=== PATIENT | female | born 1960 | race Caucasian/White ===

== ENCOUNTER → 2023-11-26 13:53 | Outpatient (REF) | payer MEDICARE, MEDICAID, SELFPAY | LOC: HWRAD 13:53 | PROVIDERS: ATTENDING PHYSICIAN Internal Medicine | DX: Z12.73 Encounter for screening for malignant neoplasm of ovary (principal) | CPT/HCPCS: 76856 ==

== ENCOUNTER → 2023-12-20 13:55 | Outpatient (REF) | payer MEDICARE, MEDICAID, SELFPAY | LOC: HWWDC 13:55 | PROVIDERS: ATTENDING PHYSICIAN Internal Medicine | DX: Z12.31 Encounter for screening mammogram for malignant neoplasm of breast (principal) | CPT/HCPCS: 77063; 77067 ==

== ENCOUNTER 2023-12-31 10:56 | Outpatient (RCR) | payer MEDICARE, MEDICAID, SELFPAY | END 2023-12-31 23:59 | disposition home or self-care (01) | LOC: RPT 10:56 | PROVIDERS: ATTENDING PHYSICIAN Internal Medicine | DX: M25.562 Pain in left knee (principal); M25.561 Pain in right knee; F40.298 Other specified phobia; Z73.6 Limitation of activities due to disability; M62.81 Muscle weakness (generalized); W19.XXXD Unspecified fall, subsequent encounter | CPT/HCPCS: 97110; 97112; 97163; 97530 ==

== ENCOUNTER 2024-01-30 16:31 | Outpatient (RCR) | payer MEDICARE, MEDICAID, SELFPAY | END 2024-01-30 23:59 | disposition home or self-care (01) | LOC: RPT 16:31 | PROVIDERS: ATTENDING PHYSICIAN Internal Medicine | DX: M25.562 Pain in left knee (principal); M25.561 Pain in right knee; F40.298 Other specified phobia; Z73.6 Limitation of activities due to disability; M62.81 Muscle weakness (generalized); W19.XXXD Unspecified fall, subsequent encounter | CPT/HCPCS: 97110; 97112; 97530 ==

== ENCOUNTER 2024-02-28 10:44 | Outpatient (RCR) | payer MEDICARE, MEDICAID, SELFPAY | END 2024-02-28 23:59 | disposition home or self-care (01) | LOC: RPT 10:44 | PROVIDERS: ATTENDING PHYSICIAN Internal Medicine | DX: M25.562 Pain in left knee (principal); M25.561 Pain in right knee; F40.298 Other specified phobia; Z73.6 Limitation of activities due to disability; M62.81 Muscle weakness (generalized); W19.XXXD Unspecified fall, subsequent encounter | CPT/HCPCS: 97110; 97112; 97530 ==

== ENCOUNTER 2024-03-27 10:11 | Outpatient (RCR) | payer MEDICARE, MEDICAID, SELFPAY | END 2024-03-27 23:59 | disposition home or self-care (01) | LOC: RPT 10:11 | PROVIDERS: ATTENDING PHYSICIAN Internal Medicine | DX: M25.562 Pain in left knee (principal); M25.561 Pain in right knee; F40.298 Other specified phobia; Z73.6 Limitation of activities due to disability; M62.81 Muscle weakness (generalized); R26.89 Other abnormalities of gait and mobility; W19.XXXD Unspecified fall, subsequent encounter | CPT/HCPCS: 97112; 97530 ==

== ENCOUNTER 2024-04-21 13:57 | Outpatient (RCR) | payer MEDICARE, MEDICAID, SELFPAY | END 2024-04-21 23:59 | disposition home or self-care (01) | LOC: RPT 13:57 | PROVIDERS: ATTENDING PHYSICIAN Internal Medicine | DX: M25.562 Pain in left knee (principal); M25.561 Pain in right knee; F40.298 Other specified phobia; Z73.6 Limitation of activities due to disability; M62.81 Muscle weakness (generalized); W19.XXXD Unspecified fall, subsequent encounter | CPT/HCPCS: 97110; 97112; 97530 ==

== ENCOUNTER → 2024-05-08 11:14 | Outpatient (REF) | payer MEDICARE, MEDICAID, SELFPAY | LOC: RCS 11:14 | PROVIDERS: ATTENDING PHYSICIAN Internal Medicine Cardiovascular Disease; FAMILY PHYSICIAN Internal Medicine | DX: I34.0 Nonrheumatic mitral (valve) insufficiency (principal) | CPT/HCPCS: 93306 ==

== ENCOUNTER 2024-05-08 15:16 | Outpatient (RCR) | payer MEDICARE, MEDICAID, SELFPAY | END 2024-05-11 07:16 | disposition home or self-care (01) | LOC: RPT 15:16 | PROVIDERS: ATTENDING PHYSICIAN Internal Medicine | DX: M25.562 Pain in left knee (principal); M25.561 Pain in right knee; F40.298 Other specified phobia; Z73.6 Limitation of activities due to disability; W19.XXXD Unspecified fall, subsequent encounter; M62.81 Muscle weakness (generalized); R42 Dizziness and giddiness; M54.2 Cervicalgia; M25.511 Pain in right shoulder; G89.29 Other chronic pain | CPT/HCPCS: 97110; 97530 ==

== ENCOUNTER → 2024-05-29 09:57 | Outpatient (REF) | payer MEDICARE, MEDICAID, SELFPAY | LOC: RAD 09:57 | PROVIDERS: ATTENDING PHYSICIAN Internal Medicine | DX: M54.2 Cervicalgia (principal) | CPT/HCPCS: 72040 ==

== ENCOUNTER → 2024-07-28 09:20 | Outpatient (REF) | payer MEDICARE, MEDICAID, SELFPAY | LOC: MRI 09:20 | PROVIDERS: ATTENDING PHYSICIAN Internal Medicine | DX: M54.2 Cervicalgia (principal) | CPT/HCPCS: 72141 ==

== ENCOUNTER 2024-10-02 12:55 | Outpatient (RCR) | payer MEDICARE, MEDICAID, SELFPAY | END 2024-10-02 23:59 | disposition home or self-care (01) | LOC: RPT 12:55 | PROVIDERS: ATTENDING PHYSICIAN Physician Assistant Medical; FAMILY PHYSICIAN Family Medicine | DX: M40.202 Unspecified kyphosis, cervical region (principal); Z73.6 Limitation of activities due to disability; M62.81 Muscle weakness (generalized); M25.511 Pain in right shoulder | CPT/HCPCS: 97010; 97110; 97163; 97530 ==

== ENCOUNTER → 2024-10-09 09:46 | Outpatient (REF) | payer MEDICARE, MEDICAID, SELFPAY | LOC: EMG 09:46 | PROVIDERS: ATTENDING PHYSICIAN Orthopaedic Surgery Hand Surgery; FAMILY PHYSICIAN Family Medicine | DX: G56.22 Lesion of ulnar nerve, left upper limb (principal); R20.0 Anesthesia of skin | CPT/HCPCS: 95886; 95911 ==

== ENCOUNTER 2024-10-30 12:48 | Outpatient (RCR) | payer MEDICARE, MEDICAID, SELFPAY | END 2024-10-30 23:59 | disposition home or self-care (01) | LOC: RPT 12:48 | PROVIDERS: ATTENDING PHYSICIAN Physician Assistant Medical; FAMILY PHYSICIAN Family Medicine | DX: M40.202 Unspecified kyphosis, cervical region (principal); Z73.6 Limitation of activities due to disability; M62.81 Muscle weakness (generalized); R20.2 Paresthesia of skin; M25.511 Pain in right shoulder | CPT/HCPCS: 97010; 97110; 97140; 97530 ==

== ENCOUNTER 2024-11-14 10:42 | Emergency (ER) | payer MEDICARE, MEDICAID, SELFPAY ==
[2024-11-14] VITALS (7 sets, daily range): BP systolic 101–142; BP diastolic 8–91; PULSE 72–76; BMI 25.2
--- NOTE | 2024-11-14 11:12 | EDRN ---
Dr. Carrillo currently at the pts bedside
[2024-11-14 11:15] LABS: % Basophils 1.4 % (0-2); % Eosinophils 0.5 % (0-6); % Immature Granulocytes 0.3 % (0-0.5); % Lymphocytes 14.3 % (20.5-51.1); % Monocytes 10.2 % (1.7-9.3); % Neutrophils 73.3 % (42.2-75.2); Absolute Basophils 0.1 10^3/uL (0-0.2); Absolute Lymphocytes 0.9 10^3/uL (1.2-3.4); Absolute Monocytes 0.7 10^3/uL (0.1-0.6); Absolute Neutrophils 4.8 10^3/uL (1.4-6.5); Hematocrit 36.8 % (37.0-47.0); Hemoglobin 12.7 g/dL (12.0-16.0); Mean Corp Hgb Conc. 34.5 g/dL (33.0-37.0); Mean Corpuscular Hgb 32.1 pg (27.0-31.0); Mean Corpuscular Volume 92.9 fL (81.0-99.0); Mean Platelet Volume 9.8 fL (7.4-10.4); Nucleated Red Blood Cells % 0 %; Platelet Count 248 10^3/uL (130-400); Red Blood Cell Count 3.96 10^6/uL (4.20-5.40); Red Cell Dist. Width 14.3 % (11.5-14.5); White Blood Cell Count 6.6 10^3/uL (4.8-10.8)
[2024-11-14 11:21] LABS: ALT (SGPT) 26 U/L (0-35); AST (SGOT) 35 U/L (14-36); Albumin 3.5 g/dl (3.5-5.0); Alkaline Phosphatase 81 U/L (38-126); Blood Urea Nitrogen 16 mg/dl (7-17); Carbon Dioxide 24 mmol/L (22-30); Chloride 100 mmol/L (98-107); Estimated Creatinine Clearance 49 ml/min; Glucose 110 mg/dl (70-99); Potassium 4.5 mmol/L (3.5-5.1); Sodium 131 mmol/L (135-145); Total Bilirubin 0.7 mg/dl (0.2-1.3); Total Protein 6.5 g/dl (6.3-8.2); eGFR > 60.00
[2024-11-14] MEDS: NSS 500 IV (11:49)
[2024-11-14 12:29] LABS: Troponin I < 0.012 ng/ml
[2024-11-14 13:53] LABS: Urine Albumin Negative (Neg - Trace); Urine Bilirubin Negative (Negative); Urine Character Clear (Clear); Urine Color Yellow; Urine Glucose Negative (Negative); Urine Ketone Negative (Negative); Urine Leukocyte Negative (Negative); Urine Nitrite Negative (Negative); Urine Occult Blood Negative (Negative); Urine Specific Gravity 1.005 (<1.030); Urine Urobilinogen Negative (Neg - 1+)
--- NOTE | 2024-11-14 14:25 | ED.GENMED ---
History of Present Illness
General
Chief Complaint: Fainting/Passed Out
Source: patient, family and disabilities caregiver
Time Seen by Provider: 11/14/24 10:59
History of Present Illness
History of Present Illness:
This is a 64-year-old female with a history of Down syndrome who presents with family (sister) and caregiver. Her caregiver who lives with her full-time states that today she came down and sat at the table. She did not quite seem herself. She
then sort of tilted her head back and lost consciousness. She states her hands were a little bit spastic but did not note a true seizure. She states she called 9 1 and she was advised to lower the patient to the floor. After the patient was
lowered to the floor she became awake and alert. The caregiver does state that EMS found her to be hypotensive. Of note, just prior to this event she was in the bathroom. Notably her caregiver reports that she spends 20 to 30 minutes in the
bathroom mostly because everything takes a long time and I do not suspect she has been constipated. They states she was quite pale when this occurred and then after she was laid on the floor her color returned. The patient did not complain of
anything. She specifically did not complain of any chest pain or abdominal pain. Family and caregiver state she has not complained of any shortness of breath. No reported fevers or recent illnesses. No reported diarrhea.
Past History
Past History
ED Past Medical History: Valvular disease (Mitral valve regurgitation), Other (The patient is a poor historian of her right hand swelling or injury ) and Other (Down Syndrome )
Social History
Tobacco: Non-smoker
Living: with roommate
Phy Exam
Physical Exam
Physical Exam:
CONSTITUTIONAL Patient alert and oriented to person, place. Well-appearing. Vital signs reviewed. Down's features noted
HEAD atraumatic, normocephalic.
EYES eyelids normal to inspection, Extraocular muscles intact, Conjunctiva normal, Sclera normal.
NECK normal range of motion, Trachea midline, no jugular venous distention.
RESPIRATORY CHEST No respiratory distress noted, Chest expansion equal, Bilateral breath sounds clear.
CARDIOVASCULAR regular rate and rhythm, Heart sounds normal.
ABDOMEN abdomen nontender, Bowel sounds normal. No distention.
BACK normal inspection, no obvious deformities
UPPER EXTREMITY range of motion normal, Motor strength normal, no cyanosis, no edema.
LOWER EXTREMITY range of motion normal, Motor strength normal, no cyanosis, no edema.
NEURO Speech normal, No focal motor deficits, Cranial Nerves intact to screening exam.
SKIN skin warm, dry, and normal in color.
Course
Orders/Labs/Results
Orders:
Orders
11/14/24 10:48
EKG [Electrocardiogram (*1)] Urgent
Reason for Study: Vertigo / Dizzy
EKG- Treatment ONCE
11/14/24 10:49
Complete Blood Count/With Diff Urgent
Comprehensive Metabolic Panel Urgent
11/14/24 11:25
0.9% Sodium Chloride 500 ml [Nss] 500 ml IV BOLUS
11/14/24 11:48
Troponin I Urgent
Urinalysis Reflex To Culture Urgent
Date Specimen was Collected: 11/14/24
Time Specimen was Collected: 11:26
11/14/24 13:58
Add On- LAB Urgent
Tests Added?: TSh, Mg
Abnormal Lab Results
11/14/24
10:49
RBC 3.96 L 10^6/uL
(4.20-5.40)
Hct 36.8 L %
(37.0-47.0)
MCH 32.1 H pg
(27.0-31.0)
Absolute Lymphs (auto) 0.9 L 10^3/uL
(1.2-3.4)
Absolute Monos (auto) 0.7 H 10^3/uL
(0.1-0.6)
Lymphocytes % 14.3 L %
(20.5-51.1)
Monocytes % 10.2 H %
(1.7-9.3)
Sodium 131 L mmol/L
(135-145)
Glucose 110 H mg/dl
(70-99)
11/14/24 10:49
11/14/24 10:49
Vital Signs
Initial and Last Documented VS:
Initial Vital Signs
Pulse Resp BP Pulse Ox
61 16 119/81 100
11/14/24 10:47 11/14/24 10:47 11/14/24 10:47 11/14/24 10:47
Last Documented Vital Signs
Temp Pulse Resp BP Pulse Ox
98.5 F 60 14 118/71 98
11/14/24 10:55 11/14/24 12:00 11/14/24 12:00 11/14/24 12:00 11/14/24 12:00
MDM/Problems Addressed
MDM/Problems Addressed:
Syncope, possible vasovagal syncope
*Pulse Oximetry
Patient hypoxic: no
*EKG
Interpreted by ED Provider?: Yes
Interpretation: abnormal
Rate: bradycardiac
Rhythm: sinus
[place]: normal axis
Interval: normal interval
QRS Pattern: normal QRS
Ischemia: no ischemia
*Gas Cutter Interpretation
Rate: normal
Interpretation: normal
Rhythm: sinus
*Critical Care Note
Total Time (30-74mins, 75-104mins- exclusive of procedures): Not Applicable
Data Reviewed
Review of Other/Old Records Reveals: Other (Echocardiogram reviewed showing mitral valve regurgitation.)
Source: patient, family and disabilities caregiver
Further Testing Considered But Not Given:
Considered head CT but do not suspect seizure
Patient Management
Escalation/DeEscalation of care consider admission/obs:
64-year-old female with history of Down's who presents after syncopal event. It was noted that she was on the toilet prior to this event question vasovagal event given bradycardia and hypotension. Symptoms resolved and has remained stable here in
the emergency department. Orthostatics negative. Case discussed with Dr. Nguyen. She knows the patient well. She will arrange outpatient Holter and echocardiogram on Saturday and agrees that outpatient management is reasonable. The patient
has 24-hour caregiver. They will monitor closely and monitor her well in the toilet. I think this is reasonable given her stability here in the department.
ED Attending Note
-
Portions of this chart may have been created with voice recognition software.� Occasional wrong word or��sound alike� substitutions may have occurred due to the inherent limitations of voice recognition software.
Discharge Plan
Departure
Patient Disposition: Home (Routine Discharge)
Date of Disposition: 11/14/24
Time of Disposition: 14:35
Patient with high blood pressure during this ER visit?: No
Discharge Problem:
Syncope
Instructions: Syncope (Fainting) (DC)
Prescriptions:
No Action
famotidine 20 mg Tablet
20 mg PO HS
Debrox 6.5 % Drops
5 drp OTIC (EAR) DAILY
docusate sodium [Colace] 100 mg Capsule
100 mg PO DAILY PRN (Reason: constipation)
fiber Capsule
1 cap PO BID
Saline Nose 0.65 % Aerosol,[place]
2 spray INTRANASAL HS
multivitamin Tablet,Chewable
1 tab PO DAILY
acetaminophen [Tylenol] 325 mg Capsule
650 mg PO Q4H PRN (Reason: pain)
diclofenac sodium [Voltaren] 1 % Gel
2 g TOPICAL DAILY
cholecalciferol (vitamin D3) [Vitamin D3] 50 mcg (2,000 unit) Capsule
50 mcg PO DAILY
Zyrtec 10 mg Capsule
10 mg PO DAILY
Prolia 60 mg/mL Syringe
60 mg SC [id number]
levothyroxine 112 mcg/mL Solution
112 mcg PO DAILY
[place] 3
2,400 mg PO HS
artifi.tears(hypromellose)(PF)
2 ophthalmic insert BOTH EYES DAILY PRN (Reason: dry eyes)
calcium
1,500 mg PO BID
vitamin [id number] B1
1,000 mcg PO HS
Mucinex
1 tab PO PRN PRN (Reason: congestion)
lidocaine [Salonpas (lidocaine)] 4 % Adhesive Patch,Medicated
1 patch TOPICAL BID PRN (Reason: pain)
Referrals:
Teresa Shukla [employer] OPERATOR HELPER [Family Provider] -
Activity Restrictions/Additional Instructions:
Please see Dr. Nguyen in follow-up as discussed to arrange Holter monitor and echocardiogram. Return for any changes in mentation any complaints of chest pain, fevers, vomiting, abdominal pain or any other concerns.
Interventions
Interventions:
*Risk Screen - Suicide Last Done: 11/14/24 10:55
*General Assessment Last Done: 11/14/24 10:55
*Neglect/Abuse Screening Last Done: 11/14/24 10:55
*ED- Fall Risk Assessment Last Done: 11/14/24 10:55
*ED COVID-19 Vaccine History Last Done: 11/14/24 10:55
ED- Cardiac Assessment Last Done: 11/14/24 10:55
ED- Neurological Assessment Last Done: 11/14/24 10:55
Discharge Date and Time
Print Language: KYRGYZ
[2024-11-14 15:36] LABS: Magnesium 1.8 mg/dl (1.6-2.3)
[2024-11-14 16:20] LABS: TSH 0.55 uIU/ml (0.47-4.68)
== END 2024-11-14 15:19 | disposition home or self-care (01) ==
LOC: EMR 10:42
PROVIDERS: EMERGENCY PHYSICIAN Emergency Medicine; FAMILY PHYSICIAN Internal Medicine
DX: R55 Syncope and collapse (principal); Q90.9 Down syndrome, unspecified; I38 Endocarditis, valve unspecified; I34.0 Nonrheumatic mitral (valve) insufficiency
CPT/HCPCS: 99283; 96360; 80053; 81003; 83735; 84443; 84484; 85025; 93005

== ENCOUNTER 2024-11-15 10:35 | Emergency (ER) | payer MEDICARE, MEDICAID, SELFPAY ==
[2024-11-15 10:41] VITALS: BP 136/83
--- NOTE | 2024-11-15 13:27 | ED.GENMED ---
History of Present Illness
General
Chief Complaint: Musculo-Skeletal Complaint
Time Seen by Provider: 11/15/24 11:14
History of Present Illness
History of Present Illness:
64-year-old female presents to the emergency department for evaluation of left knee pain and swelling. She was seen in the emergency department yesterday after a syncopal event and was treated with fluids and discharged in stable condition.
Fixed Route Bus Operator and sister notes that she had difficulty ambulating shortly after discharge and was unable to bear weight on the left knee today whatsoever. Has known history of arthritis and receives frequent knee injections with both synthetic synovial
fluid and corticosteroids. Patient endorses no pain while sitting in the exam bed
Past History
Past History
ED Past Medical History: Valvular disease (Mitral valve regurgitation), Other (The patient is a poor historian of her right hand swelling or injury ) and Other (Down Syndrome )
Social History
Tobacco: Non-smoker
Living: with roommate
Review of Systems
Review of Systems
Allergies reviewed?: Yes
All Other Systems: ROS reviewed and negative except as documented in HPI and ROS
Phy Exam
Physical Exam
Physical Exam:
GEN: Well appearing, NAD, WDWN
HEENT: Oral mucosa moist, no scleral icterus
Cardiac: Regular rate
Lung: No respiratory distress, no tachypnea
MSK: Large left knee effusion noted, range of motion is normal and unrestricted
Skin: Good color, no pallor or jaundice, no rashes
Neuro: AO x3, moves all extremities freely
Psych: Calm, cooperative
Course
Orders/Labs/Results
Orders:
Orders
11/15/24 10:38
CR Knee - Left 4 Or More View* Urgent
Comment:
Reason For Exam: pain
11/15/24 12:40
Body Fluid Cell Count Urgent
What is the Body Fluid: joint
Date Specimen was Collected: 11/15/24
Time Specimen was Collected: 12:12
Comment: with DIFF
Body Fluid Crystals Urgent
What is the Body Fluid: joint
Date Specimen was Collected: 11/15/24
Time Specimen was Collected: 12:12
Fluid Culture with Gram Stain Urgent
[place] Source: Joint Fluid
Specimen Description:
Date Specimen was Collected: 11/15/24
Time Specimen was Collected: 12:12
Comment: L knee
Vital Signs
Initial and Last Documented VS:
Initial Vital Signs
Temp Pulse Resp BP Pulse Ox
98.5 F 69 17 136/83 97
11/15/24 10:41 11/15/24 10:41 11/15/24 10:41 11/15/24 10:41 11/15/24 10:41
Last Documented Vital Signs
Temp Pulse Resp BP Pulse Ox
98.5 F 69 17 136/83 97
11/15/24 10:41 11/15/24 10:41 11/15/24 10:41 11/15/24 10:41 11/15/24 10:41
Procedures
Incision/Drainage/Joint Aspiration
Left Knee:
Anethesia: 1% Lidocaine
Preparation: cleaned with Betadine
Type of procedure: aspiration
Nature of site: other (Knee Effusion)
How much fluid was obtained?: number in mls (120mL)
Fluid description: straw colored
Treatment: bandaid applied
MDM/Problems Addressed
MDM/Problems Addressed:
Knee aspirated for greater than 100 cc of straw-colored fluid, cell counts not consistent with septic joint. Patient with dramatic improvement in pain after aspiration. Discharged in stable condition will start NSAIDs
*Critical Care Note
Total Time (30-74mins, 75-104mins- exclusive of procedures): Not Applicable
ED Attending Note
-
Portions of this chart may have been created with voice recognition software.� Occasional wrong word or��sound alike� substitutions may have occurred due to the inherent limitations of voice recognition software.
Discharge Plan
Departure
Patient Disposition: Home (Routine Discharge)
Date of Disposition: 11/15/24
Time of Disposition: 13:27
Patient with high blood pressure during this ER visit?: No
Discharge Problem:
Effusion of left knee
Instructions: Swollen Joints (DC)
Prescriptions:
New
celecoxib [Celebrex] 200 mg capsule
200 mg PO BID Qty: 14 0RF
No Action
famotidine 20 mg Tablet
20 mg PO HS
Debrox 6.5 % Drops
5 drp OTIC (EAR) DAILY
docusate sodium [Colace] 100 mg Capsule
100 mg PO DAILY PRN (Reason: constipation)
fiber Capsule
1 cap PO BID
Saline Nose 0.65 % Aerosol,[place]
2 spray INTRANASAL HS
multivitamin Tablet,Chewable
1 tab PO DAILY
acetaminophen [Tylenol] 325 mg Capsule
650 mg PO Q4H PRN (Reason: pain)
diclofenac sodium [Voltaren] 1 % Gel
2 g TOPICAL DAILY
cholecalciferol (vitamin D3) [Vitamin D3] 50 mcg (2,000 unit) Capsule
50 mcg PO DAILY
Zyrtec 10 mg Capsule
10 mg PO DAILY
Prolia 60 mg/mL Syringe
60 mg SC [id number]
levothyroxine 112 mcg/mL Solution
112 mcg PO DAILY
[place] 3
2,400 mg PO HS
artifi.tears(hypromellose)(PF)
2 ophthalmic insert BOTH EYES DAILY PRN (Reason: dry eyes)
calcium
1,500 mg PO BID
vitamin Y72-whxlptc B1
1,000 mcg PO HS
Mucinex
1 tab PO PRN PRN (Reason: congestion)
lidocaine [Salonpas (lidocaine)] 4 % Adhesive Patch,Medicated
1 patch TOPICAL BID PRN (Reason: pain)
Referrals:
Teresa Shukla NP [Family Provider] -
Activity Restrictions/Additional Instructions:
Follow up with your Orthopedist
Interventions
Interventions:
*Risk Screen - Suicide Last Done: 11/15/24 10:42
*General Assessment Last Done: 11/15/24 10:42
*Neglect/Abuse Screening Last Done: 11/15/24 10:42
*ED- Fall Risk Assessment Last Done: 11/15/24 13:30
*ED COVID-19 Vaccine History Last Done: 11/15/24 10:42
*Nursing Disposition Last Done: 11/15/24 13:30
ED-Musculoskeletal Assessment Last Done: 11/15/24 12:00
Discharge Date and Time
Discharge Date/Time: 11/15/24 13:30
Print Language: MALTESE
[2024-11-15 13:34] LABS: Body Fluid Mononuclear 9.8 %; Body Fluid Polymorphonuclear 90.2 %; Body Fluid WBC 38025 /CUMM
[2024-11-15 13:45] LABS: Body Fluid Second Tech HB
== END 2024-11-15 13:30 | disposition home or self-care (01) ==
LOC: EMR 10:35
PROVIDERS: Physician Assistant; EMERGENCY PHYSICIAN Emergency Medicine; FAMILY PHYSICIAN Internal Medicine
DX: M25.462 Effusion, left knee (principal); R26.2 Difficulty in walking, not elsewhere classified; M25.562 Pain in left knee; I34.0 Nonrheumatic mitral (valve) insufficiency; Q90.9 Down syndrome, unspecified
CPT/HCPCS: 20610; 99283; 73564; 87015; 87070; 87205; 89051; 89060

== ENCOUNTER → 2024-11-17 10:12 | Outpatient (REF) | payer MEDICARE, MEDICAID, SELFPAY | LOC: HWRAD 10:12 | PROVIDERS: ATTENDING PHYSICIAN Internal Medicine | DX: Z12.73 Encounter for screening for malignant neoplasm of ovary (principal) | CPT/HCPCS: 76856 ==

== ENCOUNTER → 2024-11-18 10:09 | Outpatient (REF) | payer MEDICARE, MEDICAID, SELFPAY | LOC: HWRCS 10:09 | PROVIDERS: ATTENDING PHYSICIAN Internal Medicine Cardiovascular Disease; FAMILY PHYSICIAN Internal Medicine | DX: R55 Syncope and collapse (principal); I34.0 Nonrheumatic mitral (valve) insufficiency | CPT/HCPCS: 93306 ==

== ENCOUNTER 2024-11-20 10:58 | Outpatient (RCR) | payer MEDICARE, MEDICAID, SELFPAY | END 2024-11-20 23:59 | disposition home or self-care (01) | LOC: RPT 10:58 | PROVIDERS: ATTENDING PHYSICIAN Physician Assistant Medical; FAMILY PHYSICIAN Family Medicine | DX: M40.202 Unspecified kyphosis, cervical region (principal); Z73.6 Limitation of activities due to disability; M62.81 Muscle weakness (generalized); M25.511 Pain in right shoulder; R20.2 Paresthesia of skin | CPT/HCPCS: 97010; 97110; 97140; 97530 ==

== ENCOUNTER 2024-11-24 06:14 | Outpatient (RCR) | payer MEDICARE, MEDICAID, SELFPAY | END 2024-11-24 23:59 | disposition home or self-care (01) | LOC: ROT 06:14 | PROVIDERS: ATTENDING PHYSICIAN Orthopaedic Surgery Hand Surgery; FAMILY PHYSICIAN Family Medicine | DX: M79.641 Pain in right hand (principal); M79.642 Pain in left hand; Z73.6 Limitation of activities due to disability; R20.0 Anesthesia of skin; R20.2 Paresthesia of skin; Q90.9 Down syndrome, unspecified | CPT/HCPCS: 97166 ==

== ENCOUNTER 2024-12-18 10:03 | Outpatient (RCR) | payer MEDICARE, MEDICAID, SELFPAY | END 2024-12-18 23:59 | disposition home or self-care (01) | LOC: ROT 10:03 | PROVIDERS: ATTENDING PHYSICIAN Orthopaedic Surgery Hand Surgery; FAMILY PHYSICIAN Family Medicine | DX: M79.641 Pain in right hand (principal); M79.642 Pain in left hand; Z73.6 Limitation of activities due to disability; R20.0 Anesthesia of skin; R20.2 Paresthesia of skin; Q90.9 Down syndrome, unspecified | CPT/HCPCS: 97535 ==

== ENCOUNTER → 2024-12-22 14:59 | Outpatient (REF) | payer MEDICARE, MEDICAID, SELFPAY | LOC: WDC 14:59 | PROVIDERS: ATTENDING PHYSICIAN Internal Medicine | DX: Z12.31 Encounter for screening mammogram for malignant neoplasm of breast (principal) | CPT/HCPCS: 77063; 77067 ==

== ENCOUNTER → 2025-02-01 16:12 | Outpatient (REF) | payer MEDICARE, MEDICAID, SELFPAY | LOC: DHSLP 16:12 | PROVIDERS: ATTENDING PHYSICIAN Internal Medicine Cardiovascular Disease; FAMILY PHYSICIAN Internal Medicine | DX: G47.30 Sleep apnea, unspecified (principal); R06.83 Snoring | CPT/HCPCS: 95800 ==

== ENCOUNTER → 2025-02-09 14:11 | Outpatient (REF) | payer MEDICARE, MEDICAID, SELFPAY | LOC: RAD 14:11 | PROVIDERS: ATTENDING PHYSICIAN Physician Assistant; FAMILY PHYSICIAN Internal Medicine | DX: M25.511 Pain in right shoulder (principal); M25.522 Pain in left elbow | CPT/HCPCS: 73030; 73070 ==

== ENCOUNTER → 2025-02-19 09:25 | Outpatient (REF) | payer MEDICARE, MEDICAID, SELFPAY | LOC: PAVMRI 09:25 | PROVIDERS: ATTENDING PHYSICIAN Physician Assistant; FAMILY PHYSICIAN Internal Medicine | DX: M25.562 Pain in left knee (principal); M17.12 Unilateral primary osteoarthritis, left knee | CPT/HCPCS: 73721 ==

== ENCOUNTER 2025-03-23 16:25 | Emergency (ER) | payer MEDICARE, MEDICAID, SELFPAY ==
[2025-03-23 16:27] VITALS: BP 159/101
[2025-03-23 17:04] LABS: Hematocrit 39.5 % (37.0-47.0); Hemoglobin 13.8 g/dL (12.0-16.0); Mean Corp Hgb Conc. 34.9 g/dL (33.0-37.0); Mean Corpuscular Volume 94.3 fL (81.0-99.0); Nucleated Red Blood Cells % 0 %; Platelet Count 222 10^3/uL (130-400); Red Cell Dist. Width 14.8 % (11.5-14.5)
[2025-03-23 17:20] LABS: Urine Character Clear (Clear)
[2025-03-23 17:27] LABS: ALT (SGPT) 59 U/L (0-35); AST (SGOT) 43 U/L (14-36); Albumin 4.1 g/dl (3.5-5.0); Alkaline Phosphatase 79 U/L (38-126); Blood Urea Nitrogen 19 mg/dl (7-17); Calcium 8.7 mg/dl (8.4-10.2); Carbon Dioxide 31 mmol/L (22-30); Chloride 94 mmol/L (98-107); Glucose 96 mg/dl (70-99); Potassium 4.2 mmol/L (3.5-5.1); Sodium 128 mmol/L (135-145); Total Protein 7.3 g/dl (6.3-8.2); eGFR > 60.00
[2025-03-23 19:50] VITALS: BP 127/100
--- NOTE | 2025-03-24 16:45 | ED.GENMED ---
History of Present Illness
General
Chief Complaint: Change in Mental Status
Source: patient, family and lead care manager
Exam Limitations: none
Time Seen by Provider: 03/23/25 18:45
Nursing documentation reviewed up to this point in time: agreed with
History of Present Illness
History of Present Illness:
Patient iwth history of downs syndrome. Caregiver reports increased confusion this AM. According to family and caregiver, patient has been seeing a neurologist to r/o downs dementia. The report that they have noticed mild decline over the past
few momths but this AM confusion was worse. Symptoms stated for a few hours and then resolved. No fever/chills, recent illness. No history of head injury. Brought to ED by family and caregiver for eval.
Past History
Past History
ED Past Medical History: Valvular disease (Mitral valve regurgitation), Other (The patient is a poor historian of her right hand swelling or injury ) and Other (Down Syndrome )
Social History
Tobacco: Non-smoker
Living: with roommate
Review of Systems
Review of Systems
All Other Systems: ROS reviewed and negative except as documented in HPI and ROS
Constitutional: Reports no symptoms
EENT: Reports no symptoms
Respiratory: Reports no symptoms
Cardiac: Reports no symptoms
ABD/GI: Reports no symptoms
: Reports no symptoms
Musculoskeletal: Reports no symptoms
Skin: Reports no symptoms
Neurological: Reports other (increased confusion this am)
Psychiatric: Reports no symptoms
Phy Exam
General Physical Exam
General Presentation: well appearing and no apparent distress
General age: appears stated age
General Skin: warm and dry
General Habitus: normal
General Mental: alert
ENT Exam
ENT Exam: EOMI, neck supple, normocephalic and swallowing well
Eye Exam
Eye Exam: PERRL, EOMI, conjunctiva normal and globe normal
Cardiovascular Exam
Cardiovascular Exam: regular rate/rhythm and no edema
Pulmonary Exam
Pulmonary Exam: lungs clear and no respiratory distress
Neurological Exam
Neurological Exam: alert, oriented x3, CN II-XII intact, no motor deficits, no sensory deficits and speech normal
Musculoskeletal Exam
Musculoskeletal Exam: full ROM and neuro vasc intact
Skin Exam
Skin Exam: normal color, warm/dry and no rash
Psychiatric Exam
Psychiatric Exam: normal mood/affect
Course
Orders/Labs/Results
Orders:
Orders
03/23/25 16:41
Urinalysis Reflex To Culture Urgent
Date Specimen was Collected: 03/23/25
Time Specimen was Collected: 16:33
03/23/25 16:43
Complete Blood Count/With Diff Urgent
Comprehensive Metabolic Panel Urgent
03/23/25 19:17
CT Head W/o Iv Contrast Urgent
Comment:
Reason For Exam: change in mental status.
Abnormal Lab Results
03/23/25
16:43
RBC 4.19 L 10^6/uL
(4.20-5.40)
MCH 32.9 H pg
(27.0-31.0)
RDW 14.8 H %
(11.5-14.5)
Absolute Lymphs (auto) 1.1 L 10^3/uL
(1.2-3.4)
Monocytes % 9.7 H %
(1.7-9.3)
Sodium 128 L mmol/L
(135-145)
Chloride 94 L mmol/L
(98-107)
Carbon Dioxide 31 H mmol/L
(22-30)
BUN 19 H mg/dl
(7-17)
AST 43 H U/L
(14-36)
ALT 59 H U/L
(0-35)
03/23/25 16:43
03/23/25 16:43
Vital Signs
Initial and Last Documented VS:
Initial Vital Signs
Temp Pulse Resp BP Pulse Ox
97.8 F 60 16 159/101 99
03/23/25 16:27 03/23/25 16:27 03/23/25 16:27 03/23/25 16:27 03/23/25 16:27
Last Documented Vital Signs
Temp Pulse Resp BP Pulse Ox
97.8 F 69 18 127/100 99
03/23/25 16:27 03/23/25 19:50 03/23/25 19:50 03/23/25 19:50 03/24/25 18:02
*Radiology
Radiology exam reviewed: radiology read reviewed
*Pulse Oximetry
SaO2: 99
Oxygen Mode of Delivery: Room air
Patient hypoxic: no
*Critical Care Note
Total Time (30-74mins, 75-104mins- exclusive of procedures): Not Applicable
Update Note
Update Note:
Patient to ED for report of confusion this AM. Family reports she is being seen by neurology for confusion but family feels today's episode was wrose. Confusion has resolved and she remains at baseline in ED. Labs, CT reviewed with patient andf
amiy. No findings to explain her symptoms this AM. Will discharge home and she will follow up with neurology, PCP. given instructions on s/s to return to ED and they are agreeable to plan.
ED Attending Note
-
Portions of this chart may have been created with voice recognition software.� Occasional wrong word or��sound alike� substitutions may have occurred due to the inherent limitations of voice recognition software.
Discharge Plan
Departure
Patient Disposition: Home (Routine Discharge)
Date of Disposition: 03/23/25
Time of Disposition: 21:15
Patient with high blood pressure during this ER visit?: No
Condition: Good
Covid-19: Not Applicable
Discharge Problem:
Altered mental status
Instructions: Altered Mental Status (DC)
Prescriptions:
No Action
famotidine 20 mg Tablet
20 mg PO QPM
Saline Nose 0.65 % Aerosol,[place]
2 spray INTRANASAL BID
multivitamin Tablet,Chewable
2 tab PO QPM
diclofenac sodium [Voltaren] 1 % Gel
1 ea TOPICAL BID
cholecalciferol (vitamin D3) [Vitamin D3] 50 mcg (2,000 unit) Capsule
50 mcg PO DAILY
Zyrtec 10 mg Capsule
10 mg PO QPM
Prolia 60 mg/mL Syringe
60 mg SC [id number]
Align Probiotic
10 mg PO DAILY
polyvinyl alcohol [Artificial Tears (polyvin alc)] 1.4 % Drops
1 drp BOTH EYES QPM
cyanocobalamin (vitamin B-12) 1,000 mcg Tablet
1,000 mcg PO QPM
acetaminophen [Tylenol Extra Strength] 500 mg Tablet
500 mg PO DAILYPRN PRN (Reason: mild pain)
Citrucel 500 mg Tablet
1,000 mg PO DAILY
metronidazole 0.75 % gel
1 applic TOPICAL DAILY
levothyroxine 112 mcg tablet
112 mcg PO DAILY
calcium carbonate 600 mg calcium (1.5 gram) Tablet,Chewable
1 tab PO QPM
omega 7-kbm-kbp-fish oil [Fish Oil] 1,200 (144-216) mg Capsule
2 cap PO QPM
Fungi-Nail
1 applic topical DAILY
Referrals:
Teresa Shukla NP [Family Provider, Internal Medicine] - Follow up in 2-3 days
Activity Restrictions/Additional Instructions:
Please have your sodium level rechecked in 1 week
Interventions
Interventions:
*Risk Screen - Suicide Last Done: 03/23/25 16:27
*General Assessment Last Done: 03/23/25 20:00
*Neglect/Abuse Screening Last Done: 03/23/25 20:00
*ED- Fall Risk Assessment Last Done: 03/23/25 20:00
*ED COVID-19 Vaccine History Last Done: 03/23/25 20:00
ED- Neurological Assessment Last Done: 03/23/25 20:00
ED Swallowing Screen Last Done: 03/23/25 20:00
Discharge Date and Time
Discharge Date/Time: 03/23/25 21:29
Print Language: CHILEAN
== END 2025-03-23 21:29 | disposition home or self-care (01) ==
LOC: EMR 16:25
PROVIDERS: EMERGENCY PHYSICIAN Emergency Medicine; FAMILY PHYSICIAN Internal Medicine
DX: R41.82 Altered mental status, unspecified (principal); Q90.9 Down syndrome, unspecified
CPT/HCPCS: 99284; 70450; 80053; 81003; 85025

== ENCOUNTER → 2025-03-30 08:12 | Outpatient (REF) | payer MEDICARE, MEDICAID, SELFPAY | LOC: HWRCS 08:12 | PROVIDERS: ATTENDING PHYSICIAN Physician Assistant; FAMILY PHYSICIAN Internal Medicine | DX: I34.0 Nonrheumatic mitral (valve) insufficiency (principal); Z87.898 Personal history of other specified conditions | CPT/HCPCS: 93306 ==

== ENCOUNTER → 2025-04-27 13:58 | Outpatient (REF) | payer MEDICARE, MEDICAID, SELFPAY | LOC: HWRAD 13:58 | PROVIDERS: ATTENDING PHYSICIAN Internal Medicine | DX: M25.522 Pain in left elbow (principal) | CPT/HCPCS: 73080 ==

== ENCOUNTER → 2025-07-13 09:51 | Outpatient (REF) | payer MEDICARE, MEDICAID, SELFPAY | LOC: RST 09:51 | PROVIDERS: ATTENDING PHYSICIAN Internal Medicine | DX: R13.10 Dysphagia, unspecified (principal) | CPT/HCPCS: 74230; 92611 ==